=== PATIENT | male | born 1980 | race Two or more races ===

== ENCOUNTER 2017-10-28 08:15 | Outpatient (CLI) | payer OTHER | END 2017-10-28 09:00 | disposition home or self-care (01) | LOC: LAB 08:15 | DX: M15.0 Primary generalized (osteo)arthritis (principal); D51.1 Vitamin B12 deficiency anemia due to selective vitamin B12 malabsorption with proteinuria; D51.3 Other dietary vitamin B12 deficiency anemia; D50.8 Other iron deficiency anemias; I10 Essential (primary) hypertension; D50.0 Iron deficiency anemia secondary to blood loss (chronic); D55.0 Anemia due to glucose-6-phosphate dehydrogenase [G6PD] deficiency; D51.0 Vitamin B12 deficiency anemia due to intrinsic factor deficiency; B20 Human immunodeficiency virus [HIV] disease; B18.9 Chronic viral hepatitis, unspecified; E03.8 Other specified hypothyroidism; E06.3 Autoimmune thyroiditis; R74.0 Nonspecific elevation of levels of transaminase and lactic acid dehydrogenase [LDH]; R76.0 Raised antibody titer; M06.09 Rheumatoid arthritis without rheumatoid factor, multiple sites; D51.8 Other vitamin B12 deficiency anemias; M33.22 Polymyositis with myopathy ==

== ENCOUNTER 2017-10-28 09:36 | Outpatient (CLI) | payer OTHER | END 2017-10-28 09:47 | disposition home or self-care (01) | LOC: SONOGRAMA 09:36 | DX: M15.0 Primary generalized (osteo)arthritis (principal); D51.1 Vitamin B12 deficiency anemia due to selective vitamin B12 malabsorption with proteinuria; D51.3 Other dietary vitamin B12 deficiency anemia; E06.3 Autoimmune thyroiditis; E03.8 Other specified hypothyroidism ==

== ENCOUNTER 2018-01-07 09:07 | Outpatient (CLI) | payer OTHER | END 2018-01-07 09:20 | disposition home or self-care (01) | LOC: NUCLEAR 09:07 | DX: M06.4 Inflammatory polyarthropathy (principal); M46.1 Sacroiliitis, not elsewhere classified | CPT/HCPCS: 78315; A9503 ==

== ENCOUNTER 2018-01-07 14:43 | Outpatient (CLI) | payer OTHER | END 2018-01-07 15:13 | disposition home or self-care (01) | LOC: RAD 14:43 | DX: M35.01 Sjogren syndrome with keratoconjunctivitis (principal); M05.79 Rheumatoid arthritis with rheumatoid factor of multiple sites without organ or systems involvement ==